=== PATIENT | female | born 2000 | race Caucasian/White ===

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

== ENCOUNTER 2019-04-04 23:11 | Emergency (ER) | payer OTHER ==
[2019-04-04 23:18] VITALS: Ht 160 cm
[2019-04-04 23:54] VITALS: BP 135/80
== END 2019-04-04 23:52 | disposition home or self-care (01) ==
LOC: ED 23:11
DX: L30.9 Dermatitis, unspecified (principal); R03.0 Elevated blood-pressure reading, without diagnosis of hypertension